=== PATIENT | male | born 1950 | race Caucasian/White ===

== ENCOUNTER 2019-04-10 05:09 | Day surgery (SDC) | payer MEDICARE, MEDICAID ==
[2019-04-10] VITALS (21 sets, daily range): BP systolic 114–167; BP diastolic 60–112
[~2019-04-10] VITALS: Ht 180.3 cm; Wt 87.8 kg
[~2019-04-10 05:09] MED LIST: ATEN100T PO; HYDR-3972 PO; METH-603 PO; ringers solution, lacted 1,000 ML IV SCH
[2019-04-10] MEDS ORDERED: cefazolin/dext.iso 2gm/100ml 100 ML IV ONE (05:30)
[2019-04-10] MEDS ORDERED: DOCUMENT DATE & TIME OF BETA-BLOCKER PO ONE (05:30)
[2019-04-10] MEDS ORDERED: famotidine 10mg tablet PO ONE (05:30)
[2019-04-10] MEDS ORDERED: LIDOcaine 1% (10mg/ml) 2ml vial ONE (06:08)
[2019-04-10] MEDS ORDERED: ceFAZolin 1000mg inj ONE (06:50)
[2019-04-10] MEDS ORDERED: BUPIVAcaine/PF 2.5 mg/ml (0.25%) 30ml vial ONE (06:50)
[2019-04-10 06:52] LABS: BASOPHILS % (AUTO) 0.4 % (0-1); EOSINOPHILS # (AUTO) 0.1 X10'3 (0-0.9); EOSINOPHILS % (AUTO) 1.6 % (0-6); LYMPHOCYTES # (AUTO) 1.2 X10'3 (1.1-4.8); LYMPHOCYTES % (AUTO) 25.4 % (21-51); MEAN CORPUSCULAR HEMOGLOBIN 30.8 PG (27.0-31.0); MEAN CORPUSCULAR HGB CONC 34.7 g/dL (33.0-36.5); MEAN CORPUSCULAR VOLUME 88.9 FL (78-98); MEAN PLATELET VOLUME 8.7 FL (7.4-10.4); MONOCYTES # (AUTO) 0.4 X10'3 (0-0.9); MONOCYTES % (AUTO) 9.6 % (2-12); PRE OP HEMATOCRIT 44.2 % (42.0-52.0); PRE OP HEMOGLOBIN 15.3 g/dL (14.0-17.9); PRE OP PLATELET COUNT 199 X10'3 (140-440); RED BLOOD COUNT 4.97 X10'6 (4.70-6.10); RED CELL DISTRIBUTION WIDTH 13.1 % (11.5-14.5)
[2019-04-10 07:19] LABS: ALBUMIN 3.9 G/DL (3.4-5.0); ALBUMIN/GLOBULIN RATIO 1.1 (1.1-1.5); ALKALINE PHOSPHATASE 65 IU/L (46-116); BLOOD UREA NITROGEN 14 MG/DL (7-18); BUN/CREATININE RATIO 14.9 (5.4-32.0); CHLORIDE 103 MMOL/L (99-107); CREATININE 0.94 MG/DL (0.60-1.10); PRE OP ALT 28 U/L (30-65); PRE OP ANION GAP 8 (8-16); PRE OP AST 15 U/L (10-37); PRE OP BILIRUB, TOTAL 0.8 MG/DL (0.0-1.0); PRE OP GLUCOSE 102 MG/DL (70-104); PRE OP POTASSIUM 4.4 MMOL/L (3.4-5.1); PRE OP SODIUM 140 MMOL/L (135-145); TOTAL CARBON DIOXIDE 28.7 MMOL/L (24-32); TOTAL PROTEIN 7.4 G/DL (6.4-8.2); eGFR 79 ML/MIN
[2019-04-10] MEDS ORDERED: sevoflurane 250ml liquid IH ONE (08:02)
[2019-04-10] MEDS ORDERED: fentaNYL/PF 50MCG/1 ML 2ML syringe ONE (08:07)
[2019-04-10] MEDS ORDERED: midazolam 2 mg/2 ml injection ONE (08:10)
[2019-04-10] MEDS ORDERED: dexamethasone sod phosphate 4mg/ml inj. ONE (08:27)
[2019-04-10] MEDS ORDERED: rocuronium 10mg/ml inj IV ONE (08:27)
[2019-04-10] MEDS ORDERED: LIDOcaine 2% (20mg/ml) 5ml vial ONE (08:27)
[2019-04-10] MEDS ORDERED: propofol inj 20 ML IV ONE (08:27)
[2019-04-10] MEDS ORDERED: ondansetron/PF 4mg/2ml inj ONE (08:27)
[2019-04-10] MEDS ORDERED: neostigmine methylsulfate 1 MG/ML 10ml vial ONE (09:16)
[2019-04-10] MEDS ORDERED: glycopyrrolate 0.2mg/ml inj ONE ×2 (09:16→09:24)
[2019-04-10] MEDS ORDERED: ringers solution, lacted 1,000 ML IV SCH (09:36)
--- NOTE | 2019-04-10 09:36 | NUR ---
Received from OR via [facility] , accompanied by Anesthesiologist RANDALL and report given by Anesthesiolgist. PATIENT WITH 20G PIV IN LEFT AC RUNNING LR AT 100. MEDICATED FOR PAIN UPON ARRIVAL, 2 LAP SITES WITH BANDAIDS TO ABDOMEN. VSS. 10L MASK ON WITH 100% SATURATIONS. Addendum: 04/10/19 at 0943 by Abilio Cornejo RN, RN Amended: Links added.
[2019-04-10] MEDS ORDERED: meperidine/PF 25mg/ml syringe ONE (09:37)
[2019-04-10] MEDS ORDERED: ondansetron/PF 4mg/2ml inj IV PRN (09:40)
[2019-04-10] MEDS ORDERED: ketorolac trometh. 30mg/ml inj. IV ONE (09:40)
[2019-04-10] MEDS ORDERED: acetaminophen 1,000mg/100ml IV 100 ML IV PRN (09:40)
[2019-04-10] MEDS ORDERED: morphine 4 MG/ML inj SYRINge IV PRN (09:40)
[2019-04-10] MEDS ORDERED: meperidine/PF 25mg/ml syringe IV PRN ×2 (09:40)
[2019-04-10] MEDS ORDERED: proCHLORperazine 10 MG/2 ml inj IV PRN (09:40)
[2019-04-10] MEDS: morphine 4 MG/ML inj SYRINge IV PRN ×2 (10:07→10:20)
[2019-04-10] MEDS: meperidine/PF 25mg/ml syringe IV PRN ×2 (10:10→10:31)
[2019-04-10] MEDS ORDERED: oxyCODONE/APAP 10/325mg tablet PO ONE (10:40)
--- NOTE | 2019-04-10 12:06 | NUR ---
Report called to receiving nurse. Transferred via [facility] WITH 2 BAGS OF Belongings . Special Issues communicated to receiving nurse [email or web address]. Addendum: 04/10/19 at 1211 by Abilio Cornejo RN RN Amended: Links added.
--- NOTE | 2019-04-10 13:47 | NUR ---
489PT IS UNABLE TO VOID, PT HAS HAD 500MLS LR, 600MLS PO, BLADDER SCAN 489ML. INFORMED PT OF STANDING ORDER TO INSERT DHILLON CATH. PT WANTS TO TRY TO VOID ONE MORE TIME INDEP'LY.
--- NOTE | 2019-04-10 14:30 | NUR ---
PT WAS UNABLE TO VOID SO A DHILLON CATH WAS PLACED PER DR GUAN'S STANDING ORDERS. 525MLS OF CLEAR YELLOW URINE WAS DRAINED UPON DHILLON INSERTION. PT INSTRUCTED IN HOW TO EMPTY AND ATTACH THE LEG BAG. PT TOLD TO CALL DR GUAN'S OFFICE 04/11 TO MAKE AN APPOINTMENT IN THE OFFICE TO REMOVE DHILLON ON MONDAY, 04/12.
== END 2019-04-10 14:30 | disposition home or self-care (01) ==
LOC: PAS 05:09
PROVIDERS: ATTEND Surgery
DX: K40.90 Unilateral inguinal hernia, without obstruction or gangrene, not specified as recurrent (principal); F12.90 Cannabis use, unspecified, uncomplicated; I10 Essential (primary) hypertension; Z72.89 Other problems related to lifestyle; Z87.891 Personal history of nicotine dependence; Z90.49 Acquired absence of other specified parts of digestive tract; Z98.890 Other specified postprocedural states; Z79.899 Other long term (current) drug therapy
CPT/HCPCS: 36415; 49650; 80053; 85025; 93005; C1781; J0131; J0690; J1100; J1885; J2001; J2175; J2250; J2270; J2405; J2704; J2710; J3010; J3490; A4215; A4314; A4618; A6258; J7120

== ENCOUNTER 2023-03-20 17:25 | Emergency (ER) | payer MEDICARE, MEDICAID ==
[~2023-03-20] VITALS: Ht 180.3 cm; Wt 87.9 kg
[~2023-03-20 17:25] MED LIST changes: -ringers solution, lacted 1,000 ML IV SCH
[2023-03-20 17:31] VITALS: BP 213/112; PULSE 90; RESP 16; TEMP 97.8; O2SAT 94
== END 2023-03-20 20:46 | disposition left against medical advice (07) ==
LOC: ER 17:26
DX: M54.50 Low back pain, unspecified (principal)
CPT/HCPCS: 99281; 99284

== ENCOUNTER 2023-08-11 09:45 | Emergency (ER) | payer MEDICARE, MEDICAID ==
[~2023-08-11] VITALS: Ht 177.8 cm; Wt 72.7 kg
[~2023-08-11 09:45] MED LIST changes: +piperacillin/tazo 3.375gm/50ml 50 ML IV ONE
[2023-08-11] MEDS ORDERED: OXYC1TAB15 PO (10:04)
[2023-08-11 10:57] LABS: BASOPHILS # (AUTO) 0.1 X10'3 (0-0.2); BASOPHILS % (AUTO) 0.9 % (0-1); EOSINOPHILS % (AUTO) 0.1 % (0-6); HEMATOCRIT 45.1 % (42.0-52.0); HEMOGLOBIN 14.7 g/dl (14.0-17.9); LYMPHOCYTES # (AUTO) 1.2 X10'3 (1.1-4.8); LYMPHOCYTES % (AUTO) 8.6 % (21-51); MEAN CORPUSCULAR HEMOGLOBIN 27.9 PG (27.0-31.0); MEAN CORPUSCULAR HGB CONC 32.7 g/dL (33.0-36.5); MEAN CORPUSCULAR VOLUME 85.5 FL (78-98); MEAN PLATELET VOLUME 7.7 FL (7.4-10.4); MONOCYTES # (AUTO) 0.8 X10'3 (0-0.9); MONOCYTES % (AUTO) 5.3 % (2-12); NEUTROPHILS # (AUTO) 12.4 X10'3 (1.8-7.7); NEUTROPHILS % (AUTO) 85.1 % (42-75); PLATELET COUNT 401 X10'3 (140-440); RED BLOOD COUNT 5.27 X10'6 (4.70-6.10); RED CELL DISTRIBUTION WIDTH 15.9 % (11.5-14.5); WHITE BLOOD COUNT 14.5 X10'3 (4.5-11.0)
[2023-08-11 11:18] LABS: ALANINE AMINOTRANSFERASE 9 U/L (12-78); ALBUMIN 3.1 G/DL (3.4-5.0); ALBUMIN/GLOBULIN RATIO 0.6 (1.1-1.5); ALKALINE PHOSPHATASE 68 IU/L (46-116); ANION GAP 6 (8-16); ASPARTATE AMINO TRANSFERASE 11 U/L (10-37); BILIRUBIN,TOTAL 0.6 MG/DL (0.1-1.0); BLOOD UREA NITROGEN 6 MG/DL (7-18); BUN/CREATININE RATIO 8.5 (10.0-20.0); CALCIUM 9.2 MG/DL (8.5-10.1); CHLORIDE 96 MMOL/L (99-107); CREATININE 0.71 MG/DL (0.60-1.10); GLUCOSE 105 MG/DL (70-104); POTASSIUM 4.1 MMOL/L (3.5-5.1); SODIUM 130 MMOL/L (135-145); TOTAL CARBON DIOXIDE 28.5 MMOL/L (24-32); TOTAL PROTEIN 8.1 G/DL (6.4-8.2); eCRCL 94 ML/MIN; eGFR > 90 ML/MIN
[2023-08-11 11:21] LABS: BILIRUBIN,DIRECT 0.1 MG/DL (0-0.3); LIPASE 19 U/L (16-77); PRO BRAIN NATRIURETIC PEPTIDE 306 PG/ML (0-125)
[2023-08-11] MEDS ORDERED: iohexol 300mg/ml 100ml inj. ONE (14:55)
[2023-08-11 16:19] LABS: BILIRUBIN,URINE NEGATIVE (Neg); CLARITY,URINE CLEAR (Clear); COLOR,URINE YELLOW (Yellow); GLUCOSE, URINE NEGATIVE (Neg); KETONES,URINE TRACE mg/dl (Neg); LEUKOCYTE ESTERASE ,URINE NEGATIVE (Neg); NITRITES, URINE NEGATIVE (Neg); OCCULT BLOOD,URINE NEGATIVE (Neg); PROTEIN,URINE NEGATIVE (Neg); UROBILINOGEN,URINE 0.2 E.U/dL (0.2-1.0)
[2023-08-11 16:21] LABS: UA COLLECTION TYPE CLN CATCH MIDSTREAM
[2023-08-11] MEDS: piperacillin/tazo 3.375gm/50ml 50 ML IV ONE (17:05)
[2023-08-11 17:06] VITALS: TEMP 98.9
[2023-08-11] MEDS: vancomycin/NS 1 GM ADD-VANTAGE 250 ML IV ONE (17:42)
[2023-08-11] MEDS: morphine 4 MG/ML inj SYRINge IV ONE ×3 (19:26→23:48)
[2023-08-12] MEDS: morphine 4 MG/ML inj SYRINge IV ONE (03:13)
[2023-08-12] MEDS: HYDROcodone/acetaminophen 5mg/325mg tablet PO ONE (03:14)
[2023-08-12] MEDS ORDERED: HYDROmorphone/PF 0.2 MG/ML SYRINGE IV ONE (09:30)
[2023-08-12] MEDS: HYDROmorphone 1 mg/ml syringe IV ONE (09:45)
[2023-08-12 10:33] VITALS: BP 150/84; PULSE 86; RESP 16; O2SAT 96
== END 2023-08-12 10:46 | disposition short-term general hospital (02) ==
LOC: ER 09:46
DX: J86.9 Pyothorax without fistula (principal); I10 Essential (primary) hypertension; Z79.899 Other long term (current) drug therapy
CPT/HCPCS: 36415; 70450; 71045; 71260; 74177; 80048; 80076; 81003; 83605; 83690; 83880; 84145; 84484; 85025; 87040; 93005; 96365; 96366; 96368; 96375; 96376; 99285; J1170; J2270; J2543; J3370; J3490; Q9967